=== PATIENT | male | born 1970 | race Caucasian/White ===

== ENCOUNTER 2019-03-04 19:41 | Emergency (ER) | payer BC ==
[2019-03-04 19:47] VITALS: BP 142/86; PULSE 95; TEMP 98.2; BMI 31.3
[2019-03-04] MEDS ORDERED: DIPHTH,PERTUSS(ACELL),TET 0.5 ML DISP.SYRIN IM ONE ×2 (19:52→20:01)
[2019-03-04] MEDS ORDERED: AMOX TR/POT CLAV 875MG/125MG TABLETS (FP) PO ONE (20:03)
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
[2019-03-04] MEDS ORDERED: AMOX TR/POT CLAV 875MG/125MG TABLETS (FP) ONE (20:06)
== END 2019-03-04 20:13 | disposition home or self-care (01) ==
LOC: FER 19:41
PROC: 3E0234Z Introduction of Serum, Toxoid and Vaccine into Muscle, Percutaneous Approach (ICD-10-PCS; principal; 2019-03-04)
DX: W50.3XXA Accidental bite by another person, initial encounter (principal); Y93.89 Activity, other specified; Y92.89 Other specified places as the place of occurrence of the external cause; Y99.0 Civilian activity done for income or pay
CPT/HCPCS: 90715; 99281-25